=== PATIENT | male | born 1995 | race Two or more races ===

== ENCOUNTER 2019-11-03 17:14 | Emergency (ER) | payer MEDICAID ==
[~2019-11-03] VITALS: Ht 185.4 cm; Wt 56.7 kg
[~2019-11-03 17:14] MED LIST: ALBUTEROL SULF8.5 GM INH; AUGMENTIN 875-1 EAC1 ORAL; AZITHROMYCIN250 MG ORAL; CHERATUSSIN AC118 ML PO; CLARITIN10 MG ORAL; FLONASE ALLERG9.9 ML NS; FLONASE1 SPRAYS NASAL; IBUPROFEN600 MG ORAL; LORATADINE10 M2 PO; MEDROL DOSEPAK4 MG ORAL; MUCINEX DM ER1 EACH PO; NKM; NORCO 5-325 TA1 EACH ORAL; OCEAN NASAL2 SPRAYS; PHENERGAN6.25 MG/5 GT; PROAIR HFA8.5 GM INH; PROMETHAZINE-C118 M1 ORAL; PROMETHAZINE-D118 ML ORAL; PSEUDOEPHEDRINE30 MG PO; ROBITUSSIN DM5 ML ORAL; TESSALON PERLE100 M2 ORAL; ZITHROMAX250 MG ORAL
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
[2019-11-03 17:43] VITALS: BP 125/72
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
[2019-11-03] MEDS ORDERED: IBUPROFEN600 MG ORAL (18:28)
[2019-11-03] MEDS ORDERED: ROBAXIN-750750 MG PO (18:28)
[2019-11-03] MEDS ORDERED: Methocarbamol 750mg tab ORAL ONE (18:30)
[2019-11-03 19:00] VITALS: BP 122/76
--- NOTE | 2019-11-03 19:00 | NUR ---
ER DISCHARGE NOTE: Patient is cleared to be discharged per ERMD, pt is aox4, on room air, with stable vital signs. pt was given dc and prescription instructions, pt was able to verbalize understanding, pt id band removed. pt is able to ambulate with steady gait. pt took all belongings.
== END 2019-11-03 19:02 | disposition home or self-care (01) ==
LOC: EMR 17:41
DX: S29.012A Strain of muscle and tendon of back wall of thorax, initial encounter (principal); S60.221A Contusion of right hand, initial encounter; V43.62XA Car passenger injured in collision with other type car in traffic accident, initial encounter; Y92.410 Unspecified street and highway as the place of occurrence of the external cause
CPT/HCPCS: 99282